=== PATIENT | female | born 1985 | race American Indian/Alaskan Native ===

== ENCOUNTER 2017-11-03 05:47 | Emergency (ER) | payer SELFPAY | END 2017-11-03 05:49 | disposition left against medical advice (07) | LOC: ED 05:47 | DX: F41.9 Anxiety disorder, unspecified (principal); Z53.21 Procedure and treatment not carried out due to patient leaving prior to being seen by health care provider ==

== ENCOUNTER 2020-08-02 07:37 | Emergency (ER) | payer OTHER, MEDICAID ==
[2020-08-02 07:43] VITALS: BP 127/89
[2020-08-02] MEDS ORDERED: LACTATED RINGERS 1,000 ML IV ONE (08:05)
[2020-08-02] MEDS ORDERED: dexAMETHasone 20 MG/5 ML VIAL IV ONE (08:05)
[2020-08-02] MEDS ORDERED: METOCLOPRAMIDE 10 MG/2 ML INJ IV ONE (08:05)
[2020-08-02] MEDS ORDERED: diphenhydrAMINE 50 MG/ML VIAL IV ONE (08:05)
[2020-08-02] MEDS ORDERED: KETOROLAC 30 MG/1 ML INJ IV ONE (08:05)
--- NOTE | 2020-08-02 08:17 | Emergency Department Report ---
ED General Adult HPI - General Chief complaint: Headache Stated complaint: JAW PAIN/MIGRAINE/FEET SWELLING Time Seen by Provider: 08/02/20 08:05 Source: patient, EMS Mode of arrival: Ambulatory Limitations: No Limitations - History of Present Illness Initial comments: Patient presents with multiple complaints though her primary concern today is migraine headache. The patient states that she has had a headache ongoing for several days, gradual in onset consistent with prior migraines unrelieved by at home medications such as Excedrin or BC powder. She reports associated photophobia as well as nausea and vomiting. She denies fever, neck stiffness, head trauma. She states she was concerned her blood pressure was elevated though here it is normal. She states that the symptoms she is experiencing is consistent with her prior migraines and there are no new or more severe symptoms such as we will not get better. [facility] that [facility] and is also had insomnia and states this is managed by them. Headache is moderate in intensity, no alleviating or exacerbating factors. - Related Data Previous Rx's Medication Instructions Recorded Last Taken Type Butalb/Acetamin/Caff 50-325-40 1 each PO Q4H PRN #12 tablet 08/02/20 Unknown Rx [Fioricet 50-325-40] Promethazine [Phenergan] 25 mg PO Q6HR PRN #12 tab 08/02/20 Unknown Rx ED Review of Systems ROS: Stated complaint: JAW PAIN/MIGRAINE/FEET SWELLING Other details as noted in HPI Comment: All other systems reviewed and negative Neurological: as per HPI ED Past Medical Hx - Past Medical History Hx Headaches / Migraines: Yes Additional medical history: ptsd/INSOMNIA/ CHRONIC BACK PAIN - Surgical History Past Surgical History?: No - Social History Smoking Status: Never Smoker Substance Use Type: None - Medications Home Medications: Home Medications Medication Instructions Recorded Confirmed Last Taken Type Butalb/Acetamin/Caff 50-325-40 1 each PO Q4H PRN #12 tablet 08/02/20 Unknown Rx [Fioricet 50-325-40] Promethazine [Phenergan] 25 mg PO Q6HR PRN #12 tab 08/02/20 Unknown Rx ED Physical Exam - General Limitations: No Limitations General appearance: alert, in no apparent distress - Head Head exam: Present: atraumatic, normocephalic - Eye Eye exam: Present: normal appearance - ENT ENT exam: Present: mucous membranes moist - Neck Neck exam: Present: normal inspection - Respiratory Respiratory exam: Present: normal lung sounds bilaterally. Absent: respiratory distress - Cardiovascular Cardiovascular Exam: Present: regular rate, normal rhythm. Absent: systolic murmur, diastolic murmur, rubs, gallop - GI/Abdominal GI/Abdominal exam: Present: soft, normal bowel sounds - Extremities Exam Extremities exam: Present: normal inspection - Back Exam Back exam: Present: normal inspection - Neurological Exam Neurological exam: Present: alert, oriented X3, CN II-XII intact, normal gait, reflexes normal. Absent: motor sensory deficit - Psychiatric Psychiatric exam: Present: normal affect, normal mood - Skin Skin exam: Present: warm, dry, intact, normal color. Absent: rash ED Course Vital Signs 08/02/20 07:40 Temperature 98.8 F Pulse Rate 81 Respiratory 18 Rate Blood Pressure 127/89 O2 Sat by Pulse 96 Oximetry - Reevaluation(s) Reevaluation #1: 08/02/20 08:52 Patient very unhappy with IV placement despite proper function. She states she was unhappy because there was some blood on the dressing around where the IV was placed. She removed this herself after RN left the room. I advised that we can either place a another IV to get medications which she refused or give IM. We will give IM and then discharged with outpatient follow-up. ED Medical Decision Making - Medical Decision Making Patient presented with migraine headache consistent with prior migraines, no new features. Examination is overall normal, no focal neurologic findings are noted. This is consistent with patient's prior migraines. I have a low suspicion for acute intracranial hemorrhage, mass, meningitis. She will be m edicated with Toradol Decadron Reglan and Benadryl and then reassessed. - Differential Diagnosis Migraine, tension headache, sinusitis. Critical care attestation.: If time is entered above; I have spent that time in minutes in the direct care of this critically ill patient, excluding procedure time. ED Disposition Clinical Impression: Migraine Qualifiers: Migraine type: unspecified Status migrainosus presence: without status migrainosus Intractability: not intractable Qualified Code(s): G43.909 - Migraine, unspecified, not intractable, without status migrainosus Disposition: TO HOME OR SELFCARE Is pt being admited?: No Condition: Good Instructions: Migraine Headache Prescriptions: Butalb/Acetamin/Caff 50-325-40 [Fioricet 50-325-40] 1 each PO Q4H PRN #12 tablet PRN Reason: Headache Promethazine [Phenergan] 25 mg PO Q6HR PRN #12 tab PRN Reason: Nausea [facility]errals: [facility] [Primary Care Provider] - 3-5 Days Time of Disposition: 08:53
== END 2020-08-02 09:39 | disposition home or self-care (01) ==
LOC: ED 07:37
DX: G43.909 Migraine, unspecified, not intractable, without status migrainosus (principal); Z79.899 Other long term (current) drug therapy
CPT/HCPCS: 96361; 96374; 96375; 99283; J1100; J1200; J1885; J2765; J7120